=== PATIENT | female | born 1955 | race Caucasian/White ===

== ENCOUNTER 2017-04-19 09:28 | Outpatient (CLI) | payer OTHER | END 2017-04-19 18:22 | disposition home or self-care (01) | LOC: SMA 09:28 | PROVIDERS: ATTEND Family Medicine | DX: Z12.31 Encounter for screening mammogram for malignant neoplasm of breast (principal) | CPT/HCPCS: G0202 ==

== ENCOUNTER 2017-06-04 14:27 | Outpatient (CLI) | payer OTHER | END 2017-06-04 18:11 | disposition home or self-care (01) | LOC: SUS 14:27 | PROVIDERS: ATTEND Family Medicine | DX: R92.2 Inconclusive mammogram (principal) | CPT/HCPCS: 76642 ==

== ENCOUNTER 2018-05-05 11:05 | Outpatient (CLI) | payer OTHER | END 2018-05-05 13:00 | disposition home or self-care (01) | LOC: SMA 11:05 | PROVIDERS: ATTEND Family Medicine | DX: Z12.31 Encounter for screening mammogram for malignant neoplasm of breast (principal) | CPT/HCPCS: 77067 ==

== ENCOUNTER 2020-03-09 08:50 | Outpatient (CLI) | payer OTHER | END 2020-03-09 21:04 | disposition home or self-care (01) | LOC: SMA 08:50 | PROVIDERS: ATTEND Family Medicine | DX: Z12.31 Encounter for screening mammogram for malignant neoplasm of breast (principal) | CPT/HCPCS: 77067 ==